=== PATIENT | male | born 1975 | race Caucasian/White ===

== ENCOUNTER 2017-08-11 11:57 | Emergency (ER) | payer OTHER ==
[2017-08-11] MEDS ORDERED: Triple Antibiotic 0.94 gm Pkt TP STA (12:37)
[2017-08-11] MEDS ORDERED: Bacitracin pkt 1 gm Pkt TP ONE (12:39)
--- NOTE | 2017-08-11 12:49 | ED Physician Chart ---
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 Patient is right-hand dominant. Allergies:: Allergies Allergy/AdvReac Type Severity Reaction Status Date / Time No Known Allergies Allergy Verified 08/11/17 12:06 Vitals:: Vital Signs - 8 hr 08/11/17 08/11/17 12:07 12:25 Temp 98.6 F 98.6 F HR 67 67 RR 15 15 BP 133/64 133/64 O2 Sat % 97 97 Historian:: Patient Review:: Nurse's Note Reviewed ED Review of Systems - Review of Systems General/Constitutional: No fever, No chills, No weakness Skin: Skin lesions Head: No headache Eyes: No loss of vision ENT: No earache, No sore throat Neck: No neck pain, No swelling Cardio Vascular: No chest pain Pulmonary: No SOB, No sputum GI: No nausea G/U: No dysuria Musculoskeletal: No bone or joint pain Endocrine: No polyuria, No polydipsia Psychiatric: No prior psych history ED Past Medical History - Past Medical History Past Medical History: No significant medical hx Family History: None Social History: Non Smoker, No Alcohol Surgical History: None Psychiatricy History: None Medication: None Family Medical History - Family Member Mother History Unknown: Yes Ethnicity: ED Physical Exam - Physical Examination General/Constitutional: Well-developed, well-nourished, No distress Head: Atraumatic Eyes: Lids, conjuctiva normal, PERRL Other Skin comments:: Right shoulder: There is a 2 mm circular crust distal to which there is a palpable subcutaneous foreign body running primarily distally and proximally but about 10 obliquely ENMT: External ears, nose nl Neck: No nuchal rigidity Respiratory: Nl effort/Exclusion, Clear to Auscultation Cardio Vascular: RRR GI: No tenderness/rebounding/guarding Extremities: No tenderness or effusion Neuro/Psych: Alert/oriented Misc: No paraspinal tenderness ED Assessment - Procedures Procedures:: Skin cleansed with Betadine solution performed; 1% Xylocaine for local anesthesia; 1.1 cm transverse incision made with a #10 scalpel ovethe distal end of the palpable foreign. Incision was probed gently with a curved hemostat and no foreign body was palpable. Sterile iris scissors were then inserted deep to the apparent foreign body and the foreign body was lifted out apparently intact. The wooden foreign body was about 4 cm long by 1/2 mm wide. 6-0 chromic 3 interrupted sutures were used to close the incision. ED Septic Shock - . Is Septic Shock (SBP<90, OR Lactate>4 mmol\L) present?: No - <6hrs of presentation: Vital Signs: Vital Signs - 8 hr 08/11/17 08/11/17 12:07 12:25 Temp 98.6 F 98.6 F HR 67 67 RR 15 15 BP 133/64 133/64 O2 Sat % 97 97 ED Reassessment (Disposition) - Reassessment Reassessment Condition:: Improved - Diagnosis Diagnosis:: Splinter foreign body right shoulder - Aftercare/Follow up Instructions Aftercare/Follow-Up Instructions:: Refer to Discharge Instructions - Patient Disposition Discharge/Transfer:: Home Condition at Disposition:: Stable, Improved ED Discharge Plan - Patient Disposition Instructions: Sliver Removal
== END 2017-08-11 12:48 | disposition home or self-care (01) ==
LOC: ER 11:57
DX: S40.251A Superficial foreign body of right shoulder, initial encounter (principal); W45.8XXA Other foreign body or object entering through skin, initial encounter; Y93.H3 Activity, building and construction; Y92.69 Other specified industrial and construction area as the place of occurrence of the external cause; Y99.0 Civilian activity done for income or pay
CPT/HCPCS: A4217; J2001; Z7502; Z7610